=== PATIENT | female | born 1980 | race Caucasian/White ===

== ENCOUNTER 2018-06-04 16:22 | Outpatient (REF) | payer MEDICAID, SELFPAY ==
[2018-06-04 21:31] LABS: Abs Immature Grans 0.01 k/cumm (0.0-0.09); Absolute Basophil Count 0.07 k/cumm (0.0-0.2); Absolute Lymphocyte Count 3.43 k/cumm (1.2-3.4); Basophils % 0.6; Eosinophils % 2.7; HCT 43.8 % (36.0-46.0); HGB 14.9 g/dL (12.0-15.5); Immature Grans % 0.1; Lymphocytes % 30.4; Mean Corpuscular Hemoglobin 34.2 pg (27.0-33.0); Mean Corpuscular Volume 100.5 fL (80-95); Mean Platelet Volume 9.6 fL (8.0-11.0); Monocytes % 5.3; Neutrophils % 60.9; Platelet Count 352 x1000/uL (130-400); RBC 4.36 m/cumm (4.00-5.20); RBC Distribution Width 12.9 % (11.7-14.6); White Blood Cell Count 11.29 k/cumm (4.4-10.8)
[2018-06-04 21:43] LABS: Absolute Neutrophil Count 6.88 k/cumm (1.2-6.7)
[2018-06-04 21:50] LABS: C-Reactive Protein 0.11 mg/dL (0.0-0.3); TSH (W/Ref FT4) 2.72 uIU/mL (0.358-3.74)
[2018-06-04 21:57] LABS: Hemoglobin A1C 5.6 % (4.5-6.2)
== END 2018-06-04 16:42 ==
LOC: NCHCN 16:22
PROVIDERS: PCP Family Medicine; Visit Provider Family Medicine
DX: R53.83 Other fatigue (principal)
CPT/HCPCS: 83036; 84443; 85025; 86140

== ENCOUNTER 2018-06-10 14:31 | Outpatient (REF) | payer SELFPAY ==
[2018-06-11 09:46] LABS: HBs Antibody, Quant <3.1 mIU/mL; Hepatitis B Surface Ab Negative
[2018-06-11 11:42] LABS: Measles IgG Antibody Positive; Mumps Antibody IgG Positive (Negative); Varicella IgG Antibody Positive
[2018-06-11 11:45] LABS: Rubella IgG Ab (UVM) Positive
[2018-06-12 15:00] LABS: TB Interpretation Negative (NEGAT)
== END 2018-06-10 14:51 ==
LOC: LBO 14:31
PROVIDERS: PCP Family Medicine; Visit Provider Nurse Practitioner Family
DX: Z02.1 Encounter for pre-employment examination (principal); Z01.84 Encounter for antibody response examination
CPT/HCPCS: 36415; 86706; 86787; 86480; 86735; 86762; 86765

== ENCOUNTER 2018-11-28 17:43 | Emergency (ER) | payer MEDICAID, SELFPAY ==
[2018-11-28 17:48] VITALS: BP 150/99; PULSE 99; RESP 16; TEMP 36.9; O2SAT 6
--- NOTE | 2018-11-28 18:14 | ED.GENADUL_ITS ---
Discharge Plan Disposition Patient Disposition: HOME Condition: Stable Discharge Details Chief Complaint: RashLesion Clinical Impression: Cellulitis of left thigh Primary Care Provider: Rachel Galicia V ED Provider: Corina Lo Home Meds and New Rx's Prescriptions: New sulfamethoxazole-trimethoprim [Bactrim DS] 800-160 mg tablet 1 tab PO BID 7 Days Qty: 14 RF: 0 Continued ibuprofen [Ibuprofen IB] 200 MG tablet 800 mg PO PRN PRNRF: 0 acetaminophen [Tylenol] 325 MG tablet 4 tab PO PRN PRNRF: 0 ibuprofen 600 MG tablet 600 mg PO Q6H PRN (Reason: Pain) Qty: 20 RF: 0 diphenhydramine HCl 25 MG capsule 25 mg PO Q8H PRN PRNQty: 15 RF: 0 Discharge Instructions Instructions: Cellulitis (ED) Additional Instructions: Apply warm compresses to the area several times daily for 20 minutes at a time. Alternate Tylenol and Motrin as needed and directed for pain. Take the antibiotics until finished. Follow-up with your primary care doctor next week for reevaluation. Return to the emergency department with any worsening or new concerning symptoms. Discharge Data Discharge Date/Time-TO BE ENTERED AT DEPARTURE: 11/28/18 18:26 Discharge Physician: Corina Lo Medical Decision Making 38-year-old female who presents with tender lump to her upper inner thigh for the past week. Denies fever. She attempted to pop but no drainage. Vitals within normal limits. She has a 3 x 3 cm area of tender indurated erythema but no obvious abscess. The area was cleaned with a Betadine swab and punctured with an 18-gauge needle and there was no pus drainage. The area was then cleaned again and covered with bacitracin ointment and a bandage. Discussed with patient that this appears consistent with a cellulitis at this time. She is instructed to continue warm compresses multiple times daily. Will give a dose of Bactrim here as well as a prescription. She is instructed to alternate Tylenol and Motrin, follow-up with primary care doctor next week for reevaluation and to return here at any time if worse. HPI General Mode of arrival: ambulatory . Date/Time Provider Initiated Documentation: 11/28/18 17:44 . Limitations to Documentation: no limitations . Information obtained by: patient . HPI Narrative: Patient is a 38-year-old female who presents with a painful lump in the inner thigh for the past week. She states she has had these before and she usually is able to pop and drain them and they resolve. She states she attempted to pop them this week but had no pus drainage. She denies any fever. Related Data Home Medications Medication Instructions Recorded Confirmed ibuprofen [Ibuprofen IB] 800 mg PO PRN PRN 06/17/15 11/28/18 acetaminophen [Tylenol] 4 tab PO PRN PRN 11/28/16 11/28/18 ibuprofen 600 mg PO Q6H PRN #20 tablet 11/28/16 11/28/18 diphenhydramine HCl 25 mg PO Q8H PRN PRN #15 cap 02/28/18 11/28/18 sulfamethoxazole-trimethoprim 1 tab PO BID 7 Days #14 tab 11/28/18 [Bactrim DS] Previous Rx's Medication Instructions Recorded ibuprofen 600 mg PO Q6H PRN #20 tablet 11/28/16 diphenhydramine HCl 25 mg PO Q8H PRN PRN #15 cap 02/28/18 sulfamethoxazole-trimethoprim 1 tab PO BID 7 Days #14 tab 11/28/18 [Bactrim DS] Allergies Allergy/AdvReac Type Severity Reaction Status Date / Time latex Allergy Mild Skin Rash Unverified 11/28/18 17:51 General Stated Complaint: RashLesion PANKAJ: 4 Review of Systems Review of Systems All systems reviewed & are unremarkable except as noted in HPI and below Constitutional Reports as per HPI, Denies chills and Denies fever(s) Eyes Denies blurry vision ENT Denies dizziness, Denies sore throat and Denies throat swelling Cardiovascular Denies chest pain and Denies dyspnea Respiratory Denies cough and Denies dyspnea Gastrointestinal Denies abdominal pain, Denies diarrhea and Denies vomiting Genitourinary Denies hematuria and Denies dysuria Musculoskeletal Denies back pain and Denies numbness Integumentary/Breasts Reports lesions and Denies rash Neurologic Denies dizziness, Denies focal weakness and Denies numbness Allergic/Immunologic Denies throat swelling [facility] Medical History Fibromyalgia (Acute) Anxiety (Chronic) Bipolar disorder (Chronic) Migraine (Chronic) Surgical History History of bilateral tubal ligation (Acute) History of dental surgery (Acute) History of dilation and curettage (Acute) History of hysterectomy (Chronic) Social History Smoking/Tobacco Use Status: Current every day Tobacco Type: cigarettes Drug use: Never Do you feel safe in your relationship?: Yes Exam Const General: cooperative, healthy appearing and no acute distress HENMT Head: normal to inspection Mouth: oral mucosae normal Eyes General: appearance normal, both eyes and all related structures Neck Neck: normal visual inspection Resp Effort & Inspection: normal respiratory effort and able to speak in complete sentences Cardio Rate: regular rate Skin General skin exam: no rashes or lesions noted Neuro General: alert, awake and oriented x3 Motor: muscle tone normal throughout Extrem Upper/lower leg/hip images: 1. There is an approximate 3x3cm area of tender indurated erythema on the L upper inner thigh. There is no fluctuance, drainage or bleeding. Psych Appearance: grossly normal Affect: normal affect Course Vital Signs Temperature 98.4 F 11/28/18 17:48 Pulse 99 H 11/28/18 17:48 Respiratory Rate 16 11/28/18 17:48 Blood Pressure 150/99 H 11/28/18 17:48 Pulse Oximetry 6 L 11/28/18 17:48 Temperature 98.4 F 11/28/18 17:48 Temperature Source Skin 11/28/18 17:48 Pulse 99 H 11/28/18 17:48 Respiratory Rate 16 11/28/18 17:48 Respiratory Effort Non-Labored 11/28/18 17:48 Blood Pressure 150/99 H 11/28/18 17:48 Blood Pressure Position Sitting 11/28/18 17:48 Pulse Oximetry 6 L 11/28/18 17:48 Oxygen Delivery Method Room Air 11/28/18 17:48 Oxygen Flow Rate 0 11/28/18 17:48 Pain Level 5 11/28/18 17:48
[2018-11-28] MEDS: Sulfameth/Trimeth DS TAB 1 TAB PO (18:20)
== END 2018-11-28 18:26 | disposition home or self-care (01) ==
PROVIDERS: Emergency Provider Physician Assistant; PCP Family Medicine
DX: L03.116 Cellulitis of left lower limb (principal)
CPT/HCPCS: 99283

== ENCOUNTER 2019-01-29 16:01 | Emergency (ER) | payer MEDICAID, SELFPAY ==
[2019-01-29 16:04] VITALS: BP 122/65; PULSE 91; RESP 16; TEMP 36.7; O2SAT 100
--- NOTE | 2019-01-29 16:04 | W.ED.GENAD ---
Discharge Plan Disposition Patient Disposition: OTHER Condition: Stable Discharge Details Chief Complaint: GenMedical Clinical Impression: Eloped from emergency department Primary Care Provider: Rachel Galicia V ED Provider: Bridget Cutler Home Meds and New Rx's Prescriptions: No Action ibuprofen [Ibuprofen IB] 200 MG tablet 800 mg PO PRN PRNRF: 0 acetaminophen [Tylenol] 325 MG tablet 2 tab PO PRN PRNRF: 0 diphenhydramine HCl 25 MG capsule 25 mg PO Q8H PRN PRNQty: 15 RF: 0 Discharge Instructions Referrals: Rachel Gailcia MD [Primary Care Provider] - Discharge Data Discharge Date/Time-TO BE ENTERED AT DEPARTURE: 01/29/19 16:57 Medical Decision Making Patient is a 38-year-old female, accompanied by her , with multitude of complaints. She reports that for the past several weeks she has had intermittent episodes of left arm pain, weakness, shortness of breath, chest pain, metallic taste in mouth, headache, generalized achiness. Patient has history of fibromyalgia, migraines, bipolar, anxiety. She is an active smoker. She reports that the symptoms are intermittent with varying lengths of time that she experiences them. Often experiences these when she is at home rest. Today however, she noted the symptoms when at work, patient works for [employer], and states that they lasted longer than they typically do prompting her to seek evaluation. Exam is benign. I am having difficulty finding one diagnosis to link all of her symptoms but I am concerned for possible ACS, neurologic source, ? PE, nerve impingement. Plan for cxr, labs, ekg. I did advise head CT and patient refuses any advanced imaging. She expresses concern for cost. Discussed [facility]. Prior to any evaluation being completed, patient and her eloped. She was appropriate. I had discussed my differentials with her. HPI General Mode of arrival: ambulatory. Date/Time Provider Initiated Documentation: 01/29/19 16:04. Limitations to Documentation: no limitations. Information obtained by: patient, family and RN notes reviewed. History of Present Illness 38 year old F presents to the emergency department with the chief complaint of Left arm pain,paresthesias, feeling unwell, described as similar to prior episodes (has had waxing and waning for past several weeks), with intensity rated at 3. Quality is described as aching (diffuse achiness, worse in the LUE), Patient reports no radiation. Patient started experiencing this week(s) and it has been intermittent. No relieving factors improve symptom(s), No exacerbating factors reported . Patient notes chest pain, cough (reports chronic smokers cough), headaches (typical migraines for patient), malaise, shortness of breath (intermittent) and weakness (generalized); denies diaphoresis, fever/chills, loss of appetite, nausea/vomiting, rash and syncope. Patient did receive the following treatments prior to arrival, none Related Data Home Medications Medication Instructions Recorded Confirmed ibuprofen [Ibuprofen IB] 800 mg PO PRN PRN 06/17/15 01/29/19 acetaminophen [Tylenol] 2 tab PO PRN PRN 11/28/16 01/29/19 diphenhydramine HCl 25 mg PO Q8H PRN PRN #15 cap 02/28/18 01/29/19 Previous Rx's Medication Instructions Recorded diphenhydramine HCl 25 mg PO Q8H PRN PRN #15 cap 02/28/18 Allergies Allergy/AdvReac Type Severity Reaction Status Date / Time latex Allergy Mild Skin Rash Unverified 01/29/19 16:08 General PANKAJ: 4 Review of Systems Constitutional Reports as per HPI, Denies chills, Reports fatigue, Denies fever(s), Denies frequent falls, Reports headache(s), Denies poor appetite, Denies snoring and Reports weakness Eyes Reports as per HPI, Denies blurry vision, Denies change in vision and Reports photophobia ENT Denies vertigo, Reports dizziness (lightheaded), Reports headache(s) and Denies neck pain Cardiovascular Reports as per HPI, Reports chest pain (left arm pain radiates into chest), Denies chest pain with activity (pain is not exertional ), Denies syncope, Denies pedal edema, Denies edema, Denies irregular heart rhythm, Reports lightheadedness, Denies radiating jaw, neck or arm pain, Reports dyspnea (intermittent, worse during times of paresthesias in LUE and CP) and Denies dyspnea on exertion Respiratory Reports as per HPI, Denies chest congestion, Denies cough, Reports dyspnea (intermittent, worse during times of paresthesias in LUE and CP), Denies dyspnea on exertion, Denies snoring, Denies stridor and Denies wheezing Gastrointestinal Reports as per HPI, Denies abdominal pain, Denies change in bowel habits, Denies nausea and Denies vomiting Musculoskeletal Reports as per HPI, Denies abnormal gait, Denies back pain, Reports myalgias, Denies arthralgias, Denies joint swelling, Denies limited range of motion, Denies muscle cramps, Denies muscle weakness (reports more generalized weakness), Denies neck pain, Denies numbness, Reports radiating pain into limb and Reports tingling Integumentary/Breasts Reports as per HPI and Denies rash Neurologic Reports as per HPI, Denies abnormal movements, Denies abnormal speech, Denies abnormal gait, Denies behavioral changes, Denies confusion, Denies vertigo, Reports dizziness (lightheaded), Denies syncope, Denies frequent falls, Reports headache(s), Denies lack of coordination, Denies focal weakness, Denies numbness, Denies sensory deficit, Reports tingling and Reports weakness Psychiatric Denies behavioral changes and Denies confusion Endocrine Reports fatigue Allergic/Immunologic Denies wheezing [facility] Medical History Fibromyalgia (Acute) Anxiety (Chronic) Bipolar disorder (Chronic) Migraine (Chronic) Surgical History History of bilateral tubal ligation (Acute) History of dental surgery (Acute) History of dilation and curettage (Acute) History of hysterectomy (Chronic) Social History Smoking/Tobacco Use Status: Current every day Tobacco Type: cigarettes Alcohol Intake: current Alcohol Intake frequency: a few times a month Drug use: Never Do you feel safe at home: Yes Do you feel safe in your relationship?: Yes Exam Const General: cooperative, healthy appearing, uncomfortable, no acute distress, well developed and well groomed Nutritional Appearance: average body habitus and well nourished Orientation: alert, awake and oriented x3 HENMT Head: normal to inspection, no palpable skull fracture, normocephalic and atraumatic Ears: hearing grossly normal bilaterally, external ears normal and TM's normal bilaterally General nose exam: external nose normal Mouth: oral mucosae normal and moist mucous membranes Throat: posterior oropharynx normal Eyes General: appearance normal, both eyes and all related structures Alignment and Position: alignment normal Periorbital: periorbital findings normal Eyelids: eyelids normal Sclera: sclerae normal Cornea: corneas normal Pupils: PERRL EOM: EOM intact bilaterally Neck Neck: normal visual inspection, full ROM, no lymphadenopathy and no meningeal signs Resp Effort & Inspection: normal respiratory effort, able to speak in complete sentences and no respiratory distress Auscultation: clear to auscultation bilaterally, no rales, no rhonchi and no wheezes Cardio Rate: regular rate Rhythm: regular rhythm Heart Sounds: S1 normal and S2 normal GI Inspection: normal to inspection and non-distended Palpation: soft, no hepatosplenomegaly, not firm, no guarding, not rigid and nontender Percussion: normal to percussion Auscultation: normal bowel sounds Back/Spine/Pelvis Cervical Spine: normal cervical lordosis and cervical ROM normal Skin General skin exam: no rashes or lesions noted Neuro General: alert, awake and oriented x3 Cranial Nerves: CN's II-XI intact bilaterally Cognition: normal cognition Speech: speech normal Gait: normal gait Motor: muscle tone normal throughout, strength 5/5 throughout, no pronator drift, no movement abnormalities noted and no fasciculations Sensory Exam: no sensory deficits noted DTR's: Rt Triceps: 2+, Lt Triceps: 2+, Rt Biceps: 2+, Lt Biceps: 2+, Rt Brachioradialis: 2+ and Lt Brachioradialis: 2+ Coordination: [id number] test normal and prsi-[id number] test normal Extrem General: normal to inspection, normal capillary refill, no pedal edema and no calf tenderness Left upper extremity: normal to inspection, full ROM, normal capillary refill and no joint enlargement Psych Appearance: grossly normal and well kempt Mental Status: mental status grossly normal Speech and Movement: speech and movement normal
[2019-01-29 16:21] VITALS: RESP 16
--- NOTE | 2019-01-29 16:48 | ED.GENADUL_ITS ---
Discharge Plan Disposition Patient Disposition: OTHER Condition: Stable Discharge Details Chief Complaint: GenMedical Clinical Impression: Eloped from emergency department Primary Care Provider: Rachel Galicia V ED Provider: Bridget Cutler Home Meds and New Rx's Prescriptions: No Action ibuprofen [Ibuprofen IB] 200 MG tablet 800 mg PO PRN PRNRF: 0 acetaminophen [Tylenol] 325 MG tablet 2 tab PO PRN PRNRF: 0 diphenhydramine HCl 25 MG capsule 25 mg PO Q8H PRN PRNQty: 15 RF: 0 Discharge Instructions Referrals: Rachel Galicia MD [Primary Care Provider] - Discharge Data Discharge Date/Time-TO BE ENTERED AT DEPARTURE: 01/29/19 16:57 Medical Decision Making Patient is a 38-year-old female, accompanied by her , with multitude of complaints. She reports that for the past several weeks she has had intermittent episodes of left arm pain, weakness, shortness of breath, chest pain, metallic taste in mouth, headache, generalized achiness. Patient has history of fibromyalgia, migraines, bipolar, anxiety. She is an active smoker. She reports that the symptoms are intermittent with varying lengths of time that she experiences them. Often experiences these when she is at home rest. Today however, she noted the symptoms when at work, patient works for [employer], and states that they lasted longer than they typically do prompting her to seek evaluation. Exam is benign. I am having difficulty finding one diagnosis to link all of her symptoms but I am concerned for possible ACS, neurologic source, ? PE, nerve impingement. Plan for cxr, labs, ekg. I did advise head CT and patient refuses any advanced imaging. She expresses concern for cost. Discussed [facility]. Prior to any evaluation being completed, patient and her eloped. She was appropriate. I had discussed my differentials with her. HPI General Mode of arrival: ambulatory . Date/Time Provider Initiated Documentation: 01/29/19 16:04 . Limitations to Documentation: no limitations . Information obtained by: patient, family and RN notes reviewed . History of Present Illness 38 year old F presents to the emergency department with the chief complaint of Left arm pain,paresthesias, feeling unwell, described as similar to prior episodes (has had waxing and waning for past several weeks), with intensity rated at 3. Quality is described as aching (diffuse achiness, worse in the LUE), Patient reports no radiation. Patient started experiencing this week(s) and it has been intermittent. No relieving factors improve symptom(s), No exacerbating factors reported . Patient notes chest p ain, cough (reports chronic smokers cough), headaches (typical migraines for patient), malaise, shortness of breath (intermittent) and weakness (generalized); denies diaphoresis, fever/chills, loss of appetite, nausea/vomiting, rash and syncope. Patient did receive the following treatments prior to arrival, none Related Data Home Medications Medication Instructions Recorded Confirmed ibuprofen [Ibuprofen IB] 800 mg PO PRN PRN 06/17/15 01/29/19 acetaminophen [Tylenol] 2 tab PO PRN PRN 11/28/16 01/29/19 diphenhydramine HCl 25 mg PO Q8H PRN PRN #15 cap 02/28/18 01/29/19 Previous Rx's Medication Instructions Recorded diphenhydramine HCl 25 mg PO Q8H PRN PRN #15 cap 02/28/18 Allergies Allergy/AdvReac Type Severity Reaction Status Date / Time latex Allergy Mild Skin Rash Unverified 01/29/19 16:08 General PANKAJ: 4 Review of Systems Constitutional Reports as per HPI, Denies chills, Reports fatigue, Denies fever(s), Denies frequent falls, Reports headache(s), Denies poor appetite, Denies snoring and Reports weakness Eyes Reports as per HPI, Denies blurry vision, Denies change in vision and Reports photophobia ENT Denies vertigo, Reports dizziness (lightheaded), Reports headache(s) and Denies neck pain Cardiovascular Reports as per HPI, Reports chest pain (left arm pain radiates into chest), Denies chest pain with activity (pain is not exertional ), Denies syncope, Denies pedal edema, Denies edema, Denies irregular heart rhythm, Reports l ightheadedness, Denies radiating jaw, neck or arm pain, Reports dyspnea (intermittent, worse during times of paresthesias in LUE and CP) and Denies dyspnea on exertion Respiratory Reports as per HPI, Denies chest congestion, Denies cough, Reports dyspnea (intermittent, worse during times of paresthesias in LUE and CP), Denies dyspnea on exertion, Denies snoring, Denies stridor and Denies wheezing Gastrointestinal Reports as per HPI, Denies abdominal pain, Denies change in bowel habits, Denies nausea and Denies vomiting Musculoskeletal Reports as per HPI, Denies abnormal gait, Denies back pain, Reports myalgias, Denies arthralgias, Denies joint swelling, Denies limited range of motion, Denies muscle cramps, Denies muscle weakness (reports more generalized weakness), Denies neck pain, Denies numbness, Reports radiating pain into limb and Reports tingling Integumentary/Breasts Reports as per HPI and Denies rash Neurologic Reports as per HPI, Denies abnormal movements, Denies abnormal speech, Denies abnormal gait, Denies behavioral changes, Denies confusion, Denies vertigo, Reports dizziness (lightheaded), Denies syncope, Denies frequent falls, Reports headache(s), Denies lack of coordination, Denies focal weakness, Denies numbness, Denies sensory deficit, Reports tingling and Reports weakness Psychiatric Denies behavioral changes and Denies confusion Endocrine Reports fatigue Allergic/Immunologic Denies wheezing [facility] Medical History Fibromyalgia (Acute) Anxiety (Chronic) Bipolar disorder (Chronic) Migraine (Chronic) Surgical History History of bilateral tubal ligation (Acute) History of dental surgery (Acute) History of dilation and curettage (Acute) History of hysterectomy (Chronic) Social History Smoking/Tobacco Use Status: Current every day Tobacco Type: cigarettes Alcohol Intake: current Alcohol Intake frequency: a few times a month Drug use: Never Do you feel safe at home: Yes Do you feel safe in your relationship?: Yes Exam Const General: cooperative, healthy appearing, uncomfortable, no acute distress, well developed and well groomed Nutritional Appearance: average body habitus and well nourished Orientation: alert, awake and oriented x3 HENMT Head: normal to inspection, no palpable skull fracture, normocephalic and atraumatic Ears: hearing grossly normal bilaterally, external ears normal and TM's normal bilaterally General nose exam: external nose normal Mouth: oral mucosae normal and moist mucous membranes Throat: posterior oropharynx normal Eyes General: appearance normal, both eyes and all related structures Alignment and Position: alignment normal Periorbital: periorbital findings normal Eyelids: eyelids normal Sclera: sclerae normal Cornea: corneas normal Pupils: PERRL EOM: EOM intact bilaterally Neck Neck: normal visual inspection, full ROM, no lymphadenopathy and no meningeal signs Resp Effort & Inspection: normal respiratory effort, able to speak in complete sentences and no respiratory distress Auscultation: clear to auscultation bilaterally, no rales, no rhonchi and no wheezes Cardio Rate: regular rate Rhythm: regular rhythm Heart Sounds: S1 normal and S2 normal GI Inspection: normal to inspection and non-distended Palpation: soft, no hepatosplenomegaly, not firm, no guarding, not rigid and nontender Percussion: normal to percussion Auscultation: normal bowel sounds Back/Spine/Pelvis Cervical Spine: normal cervical lordosis and cervical ROM normal Skin General skin exam: no rashes or lesions noted Neuro General: alert, awake and oriented x3 Cranial Nerves: CN's II-XI intact bilaterally Cognition: normal cognition Speech: speech normal Gait: normal gait Motor: muscle tone normal throughout, strength 5/5 throughout, no pronator drift, no movement abnormalities noted and no fasciculations Sensory Exam: no sensory deficits noted DTR's: Rt Triceps: 2+, Lt Triceps: 2+, Rt Biceps: 2+, Lt Biceps: 2+, Rt Brachioradialis: 2+ and Lt Brachioradialis: 2+ Coordination: [id number] test normal and [id number] test normal Extrem General: normal to inspection, normal capillary refill, no pedal edema and no calf tenderness Left upper extremity: normal to inspection, full ROM, normal capillary refill and no joint enlargement Psych Appearance: grossly normal and well kempt Mental Status: mental status grossly normal Speech and Movement: speech and movement normal
== END 2019-01-29 16:57 | disposition other institution (70) ==
LOC: ER 16:08
PROVIDERS: Emergency Provider Physician Assistant; PCP Family Medicine
DX: R51 Headache (principal); Z53.21 Procedure and treatment not carried out due to patient leaving prior to being seen by health care provider
CPT/HCPCS: 80053; 83735; 84443; 84484; 85025; 86618; 87798

== ENCOUNTER 2019-07-21 12:18 | Emergency (ER) | payer MEDICAID, SELFPAY ==
[2019-07-21 12:21] VITALS: BP 155/102; PULSE 94; RESP 18; TEMP 36.5; O2SAT 97
--- NOTE | 2019-07-21 12:30 | W.ED.GENAD ---
Discharge Plan Disposition Patient Disposition: HOME Condition: Stable Discharge Details Chief Complaint: Orthopedic Clinical Impression: Left ankle sprain Primary Care Provider: Rachel Galicia V ED Provider: Garth Whittaker Home Meds and New Rx's Prescriptions: Continued ibuprofen [Ibuprofen IB] 200 MG tablet 800 mg PO PRN PRNRF: 0 acetaminophen [Tylenol] 325 MG tablet 2 tab PO PRN PRNRF: 0 diphenhydramine HCl 25 MG capsule 25 mg PO Q8H PRN PRNQty: 15 RF: 0 Discharge Instructions Instructions: Ankle Sprain (ED) Additional Instructions: if pain continues in a week see your primary care provider if you have pain you can take 1000mg tylenol and 600mg ibuprofen every 6 hours for pain Medical Decision Making 39 yo female states she was going down stairs when she slpped on ice and fell down 4 stairs twisting the left ankle. Denies hitting head or loc. Has no headache, no neck pain with fullrom and no midline tenderness, no UE pain, no abd or chest pain. She has pain over lateral malleolous of left ankle with no pain over metatarsals, normal sensation and 2+dp/pt pulses. Is bearinb weight but with pain. will xray ankle to eval for fx . xray negative on my read, if radiology agrees will d/c with ankle stabilizer and f/u with pcp if pain continues in a week Dr. Jeff states there is a lucency over anterior calcaneus that has been present in the past but recs CT to confirm fx or not. Will order this to confirm, pt agrees with plan CT shows no fx, likely ossicles. Will d/c home Imaging Data Radiologic Study: Attestation: I personally reviewed and interpreted this imaging study as follows: Imaging: X-Ray My impression: no acute findings Radiologist's impression: FINDINGS: Three views were obtained. There is soft tissue swelling adjacent to the lateral malleolus. The ankle mortise is well maintained. No fracture is seen involving the tibia, fibula or talus. There is a lucency projected over the anterior process of the calcaneus raising the possibility of a fracture. Prior radiographs of the ankle February 2013 showed a similar appearance and these findings could represent a chronic process. Additional radiographs or CT may be obtained for clarification if clinically appropriate. Radiologic Study #2: Attestation: I personally reviewed and interpreted this imaging study as follows: Imaging: X-Ray Radiologist's impression: no acute findings on CT per Dr. Jeff, lucency appears to be ossicles HPI General Mode of arrival: ambulatory. Date/Time Provider Initiated Documentation: 07/21/19 12:19. Limitations to Documentation: no limitations. Information obtained by: patient. History of Present Illness 39 year old F presents to the emergency department with the chief complaint of left ankle pain, described as moderate, Quality is described as aching, and is localized to the left and lower extremity. Patient reports no radiation. Patient started experiencing this hour(s) (1) Rest improves symptom(s), Movement worsens symptoms . Patient did receive the following treatments prior to arrival, none Related Data Home Medications Medication Instructions Recorded Confirmed ibuprofen [Ibuprofen IB] 800 mg PO PRN PRN 06/17/15 07/21/19 acetaminophen [Tylenol] 2 tab PO PRN PRN 11/28/16 07/21/19 diphenhydramine HCl 25 mg PO Q8H PRN PRN #15 cap 02/28/18 07/21/19 Previous Rx's Medication Instructions Recorded diphenhydramine HCl 25 mg PO Q8H PRN PRN #15 cap 02/28/18 Allergies Allergy/AdvReac Type Severity Reaction Status Date / Time latex Allergy Mild Skin Rash Unverified 07/21/19 12:25 General Stated Complaint: Orthopedic PANKAJ: 3 Review of Systems All systems reviewed & are unremarkable except as noted in HPI and below Constitutional Constitutional: Denies chills, Denies fever(s) and Denies weakness Cardiovascular Cardiovascular: Denies chest pain and Denies dyspnea Respiratory Respiratory: Denies cough and Denies dyspnea Gastrointestinal Gastrointestinal: Denies abdominal pain, Denies nausea and Denies vomiting Musculoskeletal Musculoskeletal: Denies joint swelling Neurologic Neurologic: Denies weakness Allergic/Immunologic Allergic/Immunologic: Denies urticaria [facility] Social History Smoking/Tobacco Use Status: Current every day Tobacco Type: cigarettes Alcohol Intake: current Alcohol Intake frequency: a few times a month Drug use: Never Do you feel safe at home: Yes Do you feel safe in your relationship?: Yes Exam Const General: no acute distress Orientation: alert HENMT Head: normal to inspection Ears: external ears normal General nose exam: external nose normal Mouth: moist mucous membranes Eyes General: appearance normal, both eyes and all related structures Neck Neck: normal visual inspection Resp Effort & Inspection: normal respiratory effort and able to speak in complete sentences Cardio Rate: regular rate Skin General skin exam: no rashes or lesions noted Neuro General: alert and oriented x3 Extrem General: full ROM and normal capillary refill Psych Mental Status: mental status grossly normal Course Vital Signs Vital signs: Vital Signs Temperature 36.5 C 07/21/19 12:21 Pulse 94 H 07/21/19 12:21 Respiratory Rate 18 07/21/19 12:21 Blood Pressure 155/102 H 07/21/19 12:21 Pulse Oximetry 97 07/21/19 12:21 Temperature 36.5 C 07/21/19 12:21 Temperature Source Skin 07/21/19 12:21 Pulse 94 H 07/21/19 12:21 Respiratory Rate 18 07/21/19 12:21 Respiratory Effort 07/21/19 12:25 Blood Pressure 155/102 H 07/21/19 12:21 Blood Pressure Position Sitting 07/21/19 12:21 Pulse Oximetry 97 07/21/19 12:21 Oxygen Delivery Method Room Air 07/21/19 12:21 Oxygen Flow Rate 0 07/21/19 12:21 Pain Level 4 07/21/19 12:21
--- NOTE | 2019-07-21 12:39 | DI.RAD_ITS ---
EXAM: XR ANKLE LT COMPLETE CLINICAL HISTORY: pain s/p fall COMPARISON: LEFT ANKLE COMPLETE from 03/18/2013 FINDINGS: Three views were obtained. There is soft tissue swelling adjacent to the lateral malleolus. The ank le mortise is well maintained. No fracture is seen involving the tibia, fibula or talus. There is a lucency projected over the anterior process of the calcaneus raising the possibility of a fracture. Prior radiographs of the ankle February 2013 showed a similar appearance and these findings could repres ent a chronic process. Additional radiographs or CT may be obtained for clarification if clinically appropriate.
--- NOTE | 2019-07-21 13:44 | DI.CT_ITS ---
EXAM: CT LOWER EXTREMITY LT WO CLINICAL HISTORY: ?calcaneus fracture TECHNIQUE: CT examination of the ankle was performed with multislice acquisition and multiplanar rec onstruction. COMPARISON: No exams were available for comparison FINDINGS: No fracture seen involving the malleoli and the ankle mortise appears intact as does the talus. There are 2 bony fragments, which appear to represent old ossicles of the anterior process of the alicia caneus. These appear fairly well corticated although there are subchondral cysts associated with the se ossicles and with the adjacent calcaneus. No evidence of acute fracture. These may represent acc essory ossicles or old ununited injury. IMPRESSION: No evidence of acute fracture.
[2019-07-21 14:22] VITALS: BP 155/102; PULSE 94; RESP 18; TEMP 36.5; O2SAT 97
== END 2019-07-21 14:22 | disposition home or self-care (01) ==
PROVIDERS: Emergency Provider Emergency Medicine; PCP Family Medicine
DX: S93.402A Sprain of unspecified ligament of left ankle, initial encounter (principal); W00.1XXA Fall from stairs and steps due to ice and snow, initial encounter
CPT/HCPCS: 99284; 73610; 73700; L1902

== ENCOUNTER 2019-12-01 12:48 | Outpatient (REF) | payer SELFPAY | END 2019-12-01 13:08 | LOC: NCHCN 12:48 | PROVIDERS: PCP Family Medicine; Visit Provider Physician Assistant Medical | DX: R31.9 Hematuria, unspecified (principal); N93.9 Abnormal uterine and vaginal bleeding, unspecified | CPT/HCPCS: 87086; 87480; 87510; 87660 ==

== ENCOUNTER 2020-03-07 15:33 | Outpatient (REF) | payer SELFPAY ==
[2020-03-15 02:55] LABS: SARS-CoV-2 RNA Undetected (Undetected); SARS-CoV-2 Specimen Source Nasopharynx
== END 2020-03-07 15:53 ==
LOC: NCHCN 15:33
PROVIDERS: PCP Family Medicine; Visit Provider Nurse Practitioner Family
DX: R51 Headache (principal); Z20.828 Contact with and (suspected) exposure to other viral communicable diseases
CPT/HCPCS: U0003

== ENCOUNTER → 2020-11-22 01:53 | Outpatient (CLI) | payer SELFPAY ==
--- NOTE | 2020-11-22 10:24 | DI.RAD_ITS ---
EXAM: XR SHOULDER RT COMPLETE 2+V CLINICAL HISTORY: RT SHOULDER JOINT PAIN,M25.511. TECHNIQUE: 2D digital imaging was performed. COMPARISON: No exams were available for comparison FINDINGS: There is no evidence of fracture or dislocation or abnormal soft tissue calcifications. Bone density is normal. No osseous lesions. No degenerative changes. IMPRESSION: No significant radiographic findings in the right shoulder. DATA REPOSITORY: RADIATION DOSE DELIVERED:
== END ==
PROVIDERS: PCP Family Medicine; Visit Provider Family Medicine
DX: M25.511 Pain in right shoulder (principal)
CPT/HCPCS: 73030

== ENCOUNTER 2022-08-21 10:21 | Outpatient (REF) | payer SELFPAY ==
[2022-08-21 14:50] LABS: HCT 44.1 % (36.0-46.0); HGB 15.2 g/dL (11.2-15.7); MCH 34.1 pg (27.0-33.0); MCHC 34.5 % (32.0-36.0); MCV 99 fL (80-95); MPV 9.3 fL (8.0-11.0); Platelet Count 409 10^3/uL (130-400); RBC 4.46 10^6/uL (3.93-5.22); RDW 12.4 % (11.7-14.6); RDW-SD 45.1 fL; WBC 9.46 10^3/uL (4.4-10.8)
[2022-08-21 15:07] LABS: Hemoglobin A1C 5.6 % (<5.7)
[2022-08-21 15:08] LABS: ALT 17 U/L (14-59); AST 13 U/L (15-37); Alkaline Phosphatase 59 U/L (46-116); BUN 13 mg/dL (7-18); Bilirubin, Total 0.3 mg/dL (0.2-1.0); CREATININE 0.7 mg/dL (0.55-1.02); Calcium 9.1 mg/dL (8.5-10.1); Chloride 106 mmol/L (98-107); Glucose 91 mg/dL (74-106); Potassium 4.8 mmol/L (3.5-5.1); Sodium 140 mmol/L (136-145); TSH (W/Ref FT4) 2.79 uIU/mL (0.36-3.74)
== END 2022-08-21 10:22 | disposition home or self-care (01) ==
LOC: NCHCN 10:21
PROVIDERS: PCP Family Medicine; Visit Provider Physician Assistant Medical
DX: R53.83 Other fatigue (principal); G47.00 Insomnia, unspecified; Z13.1 Encounter for screening for diabetes mellitus
CPT/HCPCS: 80053; 85027; 83036; 84443

== ENCOUNTER 2024-11-08 01:10 | Outpatient (CLI) | payer BC, SELFPAY ==
--- NOTE | 2024-11-08 | DI.MAMMO_ITS ---
Exam(s) MAMMO SCREENING EXAM: MAMMO SCREENING CLINICAL HISTORY: Z12.31 Screening,baseline TECHNIQUE: Mammograms were interpreted according to the usual protocol including computer analysis w [employer] CAD system, tomosynthesis and C-view imaging. COMPARISON: No exams were available for comparison. Baseline examination. FINDINGS: The breasts are composed of scattered fibroglandular densities, Breast Density category B. No suspicious masses or suspicious microcalcifications are seen. No skin thickening or abnormal axillary lymph nodes are seen. IMPRESSION: BI-RADS Category 1, Negative mammogram Yearly screening mammography is recommended. Breast Density - Category B, scattered fibroglandular densities. A negative radiographic report should not delay biopsy if a dominant or clinically suspicious mass is present. Up to ten percent of cancers are not identified on mammography. A negative report may reinforce clinical impression. Adenosis and dense breasts may obscure an underlying neoplasm. False positive reports average 6 to 10%. Patient will receive a letter notifying them of these results.
== END 2024-11-08 01:30 ==
LOC: DI 01:11
PROVIDERS: PCP Family Medicine; Visit Provider Nurse Practitioner Family
DX: Z12.31 Encounter for screening mammogram for malignant neoplasm of breast (principal); R92.323 Mammographic fibroglandular density, bilateral breasts
CPT/HCPCS: 77063; 77067

== ENCOUNTER 2024-12-02 17:55 | Outpatient (REF) | payer BC, SELFPAY ==
--- NOTE | 2024-12-02 12:30 | PAPFT_PTH ---
PATIENT: Jazmin Jackson LOC: [facility]#:[id number] AGE/SX: 44/F ROOM: RE12/02/[address]: Rachel Galicia V : 1980 BED: DIS: 12/02/2024 SPEC #: [id number] RECD: 12/02/24 18:52 STATUS: VANESSA REQ #: [id number] PORFIRIO: 12/02/24 12:[address]: Rachel Galicia V DEPT: [facility] Cytology RECD BY: Prema Caal Tissues: 1 - CX/ENDOCX FOR PAP SMEARS Procedures: PAP THIN PREP/UVM Screening HPV DNA PROBE Comments: [id number] (HPV 16 & 18/45)
[2024-12-02 19:29] LABS: Abs Immature Grans 0.01 10^3/uL (0.0-0.06); Absolute Basophil Count 0.11 10^3/uL (0.0-0.2); Absolute Eosinophil Count 0.32 10^3/uL (0.0-0.7); Absolute Lymphocyte Count 2.99 10^3/uL (1.2-3.4); Absolute Monocyte Count 0.43 10^3/uL (0.1-0.8); Absolute Neutrophil Count 4.94 10^3/uL (1.2-6.7); Basophils % 1.3 %; Eosinophils % 3.6 %; HCT 48.6 % (36.0-46.0); HGB 16.2 g/dL (11.2-15.7); Immature Grans % 0.1 %; MCH 34.2 pg (27.0-33.0); MCHC 33.3 % (32.0-36.0); MCV 103 fL (80-95); MPV 9.1 fL (8.0-11.0); Monocytes % 4.9 %; Neutrophils % 56.1 %; Platelet Count 420 10^3/uL (130-400); RBC 4.74 10^6/uL (3.93-5.22); RDW 12.9 % (11.7-14.6); RDW-SD 49.2 fL
[2024-12-02 20:02] LABS: Hemoglobin A1C 5.7 % (<5.7)
[2024-12-02 20:03] LABS: ALT 26 U/L (14-59); AST 15 U/L (15-37); Albumin 4.1 g/dL (3.4-5.0); Alkaline Phosphatase 66 U/L (46-116); Anion Gap 9.2 mmol/L (3-11); BUN 7 mg/dL (7-18); Bilirubin, Total 0.4 mg/dL (0.2-1.0); CO2 27.8 mmol/L (21.0-32.0); CREATININE 0.8 mg/dL (0.55-1.02); Calcium 9.2 mg/dL (8.5-10.1); Calculated LDL 148 mg/dL (<100); Chloride 105 mmol/L (98-107); Cholesterol 241 mg/dL (<200); Estimated GFR 91.97 (mL/min/1.73m2); Glucose 92 mg/dL (74-106); HDL Cholesterol 58 mg/dL (>or=50); Potassium 4.6 mmol/L (3.5-5.1); Sodium 142 mmol/L (136-145); Total Protein 7.2 g/dL (6.4-8.2); Triglyceride 176 mg/dL (<150); Vitamin B12 197 pg/mL (193-986); Vitamin D 25 Total 13 ng/mL (30-100)
[2024-12-03 09:30] LABS: FREE T4 0.66 ng/dL (0.76-1.46); TSH 3.87 uIU/mL (0.36-3.74)
[2024-12-04 11:35] LABS: HIV-1/2 Ag & Ab Screen Negative (Negative)
[2024-12-06 09:18] LABS: Hepatitis C Ab w Rflx HCV PCR Negative (Negative)
== END 2024-12-02 17:56 | disposition home or self-care (01) ==
LOC: NCHCN 17:55
PROVIDERS: PCP Family Medicine; Visit Provider Family Medicine
DX: R35.0 Frequency of micturition (principal); F41.9 Anxiety disorder, unspecified; Z00.00 Encounter for general adult medical examination without abnormal findings; Z13.220 Encounter for screening for lipoid disorders; Z13.1 Encounter for screening for diabetes mellitus; E53.9 Vitamin B deficiency, unspecified; R89.9 Unspecified abnormal finding in specimens from other organs, systems and tissues; Z12.4 Encounter for screening for malignant neoplasm of cervix; Z01.419 Encounter for gynecological examination (general) (routine) without abnormal findings
CPT/HCPCS: 80053; 80061; 82306; 86803; 87389; 88142; 82607; 83036; 84439; 84443; 85025; 87086; 87624

== ENCOUNTER 2025-03-31 03:17 | Outpatient (CLI) | payer BC, SELFPAY ==
--- NOTE | 2025-03-31 08:49 | DI.RAD_ITS ---
Exam(s) XR THORACIC SPINE COMPLETE EXAM: XR THORACIC SPINE COMPLETE CLINICAL HISTORY: M54.42,M54.41 Lumbago w/sciatica,LT RT side, Acute bilat low back pain. TECHNIQUE: 2D digital imaging was performed of the thoracic spine. Three views were obtained. AP, swimmer's and lateral views were obtained. COMPARISON: CR PORTABLE CHEST ONE VIEW from 02/28/2018 FINDINGS: BONES: There is no fracture or destructive lesion. There is small endplate osteophytes throughout the thoracic spine. DISKS:Alignment is within normal limits. Interverebral disc spaces are maintained. SOFT TISSUE: Visualized lungs are clear. IMPRESSION: Mild degenerative changes in the thoracic spine. DATA REPOSITORY: RADIATION DOSE DELIVERED:
--- NOTE | 2025-03-31 08:49 | DI.RAD_ITS ---
Exam(s) XR LUMBAR SPINE COMPLETE EXAM: XR LUMBAR SPINE COMPLETE CLINICAL HISTORY: M54.42,M54.41 Lumbago w/sciatica,LT RT side, Acute bilat low back pain. TECHNIQUE: 2D digital imaging was performed of the lumbar spine. Five images were obtained. AP, lateral, right oblique, left oblique and L5-S1 spot views were obtained. COMPARISON: CR LUMBAR SPINE COMPLETE from 02/01/2013 FINDINGS: BONES: There are 6 non rib containing vertebra. No fracture or destructive lesion. There are small endplate osteophytes seen in the lower lumbar spine. There are mild degenerative changes of the facets seen at L5-S1. DISKS: There is mild disc space narrowing seen at L4-L5. ALIGNMENT: Lumbar spinal alignment is within normal limits. No spondylolysis or spondylolisthesis. SOFT TISSUE: Atherosclerotic calcification is present. IMPRESSION: Mild degenerative changes seen in the lumbar spine. DATA REPOSITORY: RADIATION DOSE DELIVERED:
== END 2025-03-31 03:37 ==
LOC: DI 03:17
PROVIDERS: PCP Family Medicine; Visit Provider Family Medicine
DX: M54.42 Lumbago with sciatica, left side (principal)
CPT/HCPCS: 72072; 72110

== ENCOUNTER 2025-04-17 09:56 | Emergency (ER) | payer BC, SELFPAY ==
[2025-04-17 10:02] VITALS: BP 187/103; PULSE 83; RESP 16; TEMP 36.6
--- NOTE | 2025-04-17 10:07 | W.ED.GENAD ---
Discharge Plan Disposition Patient Disposition: Home Condition: Good Discharge Details Clinical Impression: Lumbar back pain with radiculopathy affecting lower extremity, Elevated blood pressure reading, Hematuria Primary Care Provider: Rachel Galicia V ED Provider: Brianne Muse Home Meds and New Rx's Prescriptions: Continued ibuprofen [Ibuprofen IB] 200 MG tablet 800 mg PO PRN PRN diphenhydramine HCl 25 MG capsule 25 mg PO Q8H PRN PRNQty: 15 0RF tizanidine 4 mg tablet 4 mg PO TID Patient Comments: TAKE 1 TABLET BY MOUTH THREE TIMES DAILY FOR MUSCLE RELAXATION cholecalciferol (vitamin D3) 50 mcg (2,000 unit) capsule 2,000 unit PO DAILY Patient Comments: TAKE 1 CAPSULE BY MOUTH EVERY DAY cyanocobalamin (vitamin B-12) 1,000 mcg tablet 1,000 mcg PO DAILY Patient Comments: TAKE 1 TABLET BY MOUTH EVERY DAY levothyroxine 50 mcg tablet 50 mcg PO DAILY Changed acetaminophen [Tylenol] 325 MG tablet 650 mg PO Q6H PRNQty: 0 0RF Rx Instructions: 2 tab orally every 6-8 hours as needed. Do not exceed recommended dosing gabapentin 100 mg capsule 100 mg PO TID Qty: 10 0RF Discharge Instructions Instructions: High blood pressure in adults, Low Back Pain ED Additional Instructions: Call your primary care provider's office first thing in the morning to discuss status of your MRI order, PT referral, and to schedule a follow-up appointment. I recommend that you discuss your blood pressure at that time. There was a bit of blood noted in your urine without signs of infection. I recommend that you discuss this with your primary care provider and have your urine rechecked to make sure it has cleared up. Blood pressure was very elevated today. I recommend that you discuss this with your primary care provider to monitor and treat. Uncontrolled blood pressure puts you at high risk of conditions such as heart disease, heart attacks, stroke, kidney dysfunction. You may use ibuprofen 600 mg every 8 hours and tylenol 650 mg every 8 hours as needed for pain control. Do not exceed maximum dosing for Tylenol or ibuprofen. Lidocaine patches, heat/ice (not to be used over lidocaine patches), and gentle massage/stretching may also be helpful. Return to emergency care if you develop fevers associated with back pain, numbness in your underwear area, change in bowel/bladder function (inability to empty bladder, loss of bladder/bowel control), leg weakness or numbness, or if you are very worried and need to be rechecked again immediately. Referrals: Rachel Galicia MD [Primary Care Provider, Medicine] [facility] General Date/Time Provider Initiated Documentation: 04/17/25 09:58. HPI Narrative: Jazmin is a 44-year-old female who presents to the emergency department today for evaluation of lower back pain with sciatica. She is accompanied by her . Sciatic pain radiating down both legs (R>L) for several weeks, recently intensified today. Describes pain as cramping and pinching (like a john horse), causes difficulty bearing weight on leg, requires assistance going down stairs in particular. Reports numbness in legs when pain subsides, with [id number] sensation along side of leg (lateral R lower leg). Occasional pain radiating into L lateral thigh. Laying down does not exacerbate pain, says that sitting in her anaya chair is most comfortable. Denies associated fevers/chills, unusual weight loss, recent falls or back injuries, change in bowel or bladder function, saddle anesthesia/paresthesias, abdominal pain, nausea/vomiting, color change to extremity. Does have some urinary urgency, but no accidents. Has not had any physical therapy, spinal procedures, lumbar punctures, or spinal surgeries. Did have an epidural in the past when in labor. Manages pain with Tylenol 500 mg, four tablets six times a day. Takes gabapentin at night, unsure of dosage (informed by to be 100 mg qhs), as well as tizanidine which causes drowsiness. Recently completed 10-day course of prednisone, which she says did provide some relief. Not currently using lidocaine patches or NSAIDs. Recently noted elevated blood pressures, attributed to pain. No history of HTN, high cholesterol, heart problems, or diabetes as an adult. She does smoke tobacco and drink alcohol. Jazmin was evaluated on 03/26/[address] Galicia for low back pain with left-sided radiculopathy. At that time T and L-spine x-rays were ordered, mild degenerative changes of the facets noted at L5-S1 and mild disc space narrowing seen at L4-L5, no acute abnormalities noted. MRI has been ordered, pending insurance approval. Related Data Home Medications ?Medication ?Instructions ?Recorded ?Confirmed ibuprofen 200 mg tablet (Ibuprofen 800 mg PO PRN PRN 06/17/15 04/17/25 IB) diphenhydramine HCl 25 mg capsule 25 mg PO Q8H PRN PRN #15 caps 02/28/18 04/17/25 acetaminophen 325 mg tablet 650 mg (2 x 325 mg) PO Q6H PRN #0 04/17/25 04/17/25 (Tylenol) tabs cholecalciferol (vitamin D3) 50 2,000 unit PO DAILY 04/17/25 04/17/25 mcg (2,000 unit) capsule cyanocobalamin (vitamin B-12) 1,000 mcg PO DAILY 04/17/25 04/17/25 1,000 mcg tablet gabapentin 100 mg capsule 100 mg PO TID #10 caps 04/17/25 levothyroxine 50 mcg tablet 50 mcg PO DAILY 04/17/25 04/17/25 tizanidine 4 mg tablet 4 mg PO TID 04/17/25 04/17/25 Previous Rx's ?Medication ?Instructions ?Recorded diphenhydramine HCl 25 mg capsule 25 mg PO Q8H PRN PRN #15 caps 02/28/18 acetaminophen 325 mg tablet 650 mg (2 x 325 mg) PO Q6H PRN #0 04/17/25 (Tylenol) tabs gabapentin 100 mg capsule 100 mg PO TID #10 caps 04/17/25 Allergies Allergy/AdvReac Type Severity Reaction Status Date / Time latex Allergy Mild Skin Rash Unverified 04/17/25 10:45 General Stated Complaint: Vascular PANKAJ: 3 Exam Narrative Exam Narrative: General Appearance: Normal. Vital signs: Within normal limits. Back, Musculoskeletal: Bilateral paraspinal tenderness, diffuse tenderness to L-spine with palpation, no step-offs or deformities. Extremities: No color change or change in temperature to legs. No calf redness/swelling. Neurological: Intact sensation to legs, noted [id number] to dorsum of R foot. No hip pain with rotation. 5/5 muscle strength to bilateral legs. Skin: Warm and dry, no rash. Psychiatric: Normal. Course Vital Signs Vital signs: Vital Signs Temperature 36.6 C 04/17/25 10:02 Pulse 83 04/17/25 10:02 Respiratory Rate 16 04/17/25 10:02 Blood Pressure 187/103 H 04/17/25 10:02 Temperature 36.6 C 04/17/25 10:02 Temperature Source Oral 04/17/25 10:02 Pulse 83 04/17/25 10:02 Respiratory Rate 16 04/17/25 10:02 Blood Pressure 187/103 H 04/17/25 10:02 Pain Level 10 04/17/25 10:02 Medical Decision Making 44-year-old female with worsening sciatic pain, numbness, cramping in leg (R>L). Physical exam remarkable for bilateral straight leg raise, diffuse tenderness along the lumbar spine with paraspinal tenderness. History and presentation consistent with sciatica along L4/L5 distribution, no red flags concerning for spinal epidural abscess, compressive cord syndrome, fracture, AAA, or infectious process. Patient does have some urgency of urination, UA obtained to rule out UTI. Patient does have elevated blood pressure without history of hypertension, denies associated headaches, dizziness, chest pain, shortness of breath, change in urine output. I independently interpreted the following test: UA, significant for blood, not consistent with UTI. Reviewed findings with patient. ED Course: - Toradol injection administered for immediate pain relief, as well as cyclobenzaprine and gabapentin. Jazmin reports good improvement of symptoms, is able to ambulate without difficulty, feels like her legs are strong. Final Assessment: Medications provided with good pain relief. No red flags indicating need for emergent MRI. Clinical Impression: - Sciatica - Hematuria, unknown etiology - Elevated blood pressure without diagnosis of hypertension Disposition: Reviewed discharge instructions with patient, including importance of close follow-up with PCP for MRI, PT referral, evaluation of hematuria, and management of blood pressure. - Discharge home: Reduce Tylenol intake and practice good symptomatic mgmt, follow up with Dr. Galicia, monitor urinary symptoms, follow up with primary care provider for hypertension management. - Follow-Up: Close follow-up with PCP Patient consented to the use of [facility] PFSH All Active Problems (Updated 04/17/25 @ 12:13 by Brianne Gutierrez) Hematuria (Acute) Elevated blood pressure reading (Acute) Lumbar back pain with radiculopathy affecting lower extremity (Acute) Medical History (Updated 04/17/25 @ 12:13 by Brianne Gutierrez) Fibromyalgia Migraine Bipolar disorder Anxiety Surgical History History of dental surgery History of dilation and curettage History of bilateral tubal ligation History of hysterectomy Social History Smoking/Tobacco Use Status: Current every day Tobacco Type: cigarettes Smoking risk assessment performed?: Yes Alcohol Intake: current Alcohol Intake frequency: 3 or more drinks per day Alcohol type: beer Drug use: Never Substance use type: does not use Do you feel safe at home: Yes Do you feel safe in your relationship?: Yes
[2025-04-17] MEDS: Lidocaine 5% Patch 1 PATCH TP (10:40)
[2025-04-17] MEDS: Ketorolac 30 MG/ML VIAL IM (10:40)
[2025-04-17] MEDS: Cyclobenzaprine 10 MG TAB PO (10:40)
[2025-04-17] MEDS: Gabapentin 100 MG CAP PO (10:50)
[2025-04-17 11:24] VITALS: BP 190/90; PULSE 72; RESP 16; O2SAT 96
[2025-04-17 11:53] VITALS: BP 178/90
[2025-04-17 12:00] LABS: Glucose Negative (Negative)
[2025-04-17 12:09] LABS: C & S Indicated? No; WBC 0-2 HPF (0-5)
== END 2025-04-17 12:22 | disposition home or self-care (01) ==
PROVIDERS: Emergency Provider Nurse Practitioner Family; PCP Family Medicine
DX: M54.42 Lumbago with sciatica, left side (principal); M54.41 Lumbago with sciatica, right side; R03.0 Elevated blood-pressure reading, without diagnosis of hypertension; R31.9 Hematuria, unspecified
CPT/HCPCS: 99284; 99283; 96372; 81003; 81015; J1885

== ENCOUNTER 2025-08-19 13:40 | Outpatient (REF) | payer BC, SELFPAY ==
[2025-08-19 15:55] LABS: Anion Gap 6.4 mmol/L (3-11); BUN 12 mg/dL (9-23); CO2 26.6 mmol/L (20.0-31.0); Calcium 9.1 mg/dL (8.3-10.6); Chloride 109 mmol/L (98-107); Glucose 94 mg/dL (74-106); Potassium 4.1 mmol/L (3.5-5.1); Sodium 142 mmol/L (136-145)
[2025-08-19 15:57] LABS: Microalb ug/mg Crea 17.1 ug/mg Cr
== END 2025-08-19 13:41 | disposition home or self-care (01) ==
LOC: NCHCN 13:40
PROVIDERS: PCP Family Medicine; Visit Provider Family Medicine
DX: I10 Essential (primary) hypertension (principal)
CPT/HCPCS: 80048; 82043; 82570